=== PATIENT | female | born 1945 | race Caucasian/White ===

== ENCOUNTER 2016-06-02 05:54 | Inpatient (IN) | payer MEDICARE, BC ==
[2016-06-02] MEDS ORDERED: TRANEXAMIC ACID 1,000 MG in NORMAL SALINE 100 ML IV PRN (06:00)
[2016-06-02] MEDS ORDERED: ROPIVACAINE HCL/PF 100 MG, KETOROLAC TROMETHAMINE 30 MG, EPINEPHrine 0.2 MG in NORMAL S... IJ PRN (06:00)
[2016-06-02] MEDS ORDERED: MORPHINE SULFATE 15 MG TABLET.SA PO PRN (06:00)
[2016-06-02] MEDS ORDERED: ceFAZolin SODIUM 1 GM VIAL IV PRN (06:00)
[2016-06-02] MEDS: RINGERS SOLUTION,LACTATED 1,000 ML IV PRN ×2 (06:46→10:49)
[2016-06-02] MEDS ORDERED: PROMETHAZINE HCL 5 MG in DEXTROSE 5 % IN WATER 50 ML IV PRN ×2 (10:05)
[2016-06-02] MEDS ORDERED: ZOLPIDEM TARTRATE 5 MG TABLET PO PRN (10:05)
[2016-06-02] MEDS ORDERED: ONDANSETRON HCL/PF 2 MG/ML VIAL IV PRN (10:05)
[2016-06-02] MEDS ORDERED: MAGNESIUM HYDROXIDE 30 ML UDC PO PRN (10:05)
[2016-06-02] MEDS ORDERED: oxyCODONE HCL/ACETAMINOPHEN 1 TAB TABLET PO PRN (10:05)
[2016-06-02] MEDS ORDERED: MAG HYDROX/ALUMINUM HYD/SIMETH 30 ML UDC PO PRN (10:05)
[2016-06-02] MEDS ORDERED: ACETAMINOPHEN 500 MG TABLET PO PRN (10:05)
[2016-06-02] MEDS ORDERED: diphenhydrAMINE HCL 50 MG/ML VIAL IV PRN (10:05)
[2016-06-02] MEDS ORDERED: HYDROmorphone HCL 1 MG/ML DISP.SYRIN IV PRN (10:05)
[2016-06-02] MEDS ORDERED: ALPRAZolam 0.5 MG TABLET PO PRN (10:07)
--- NOTE | 2016-06-02 10:11 | OR ---
Operative Report - Dictated Report Narrative: Date: 06/02/2016 Preoperative diagnosis: Left Knee degenerative joint disease. Postoperative diagnosis: Left Knee degenerative joint disease. Procedure: Left Total knee arthroplasty. Surgeon: Eduardo Griffin M.D. Toggle Press Folder And Feeder: Pawan Durham PA-C Anesthesia: General with regional block and local periarticular joint injection. Complications: None Specimens: Bone for disposal. Estimated blood loss: Minimal. Tourniquet time: 96 Minutes at 350 millimeters of mercury. Retained implants: Depuy Attune size 5 narrow left lugged cemented posterior stabilized femoral component. Size 4 fixed-bearing cemented tibial platform. 5 by 7 millimeter posterior stabilized cross-linked tibial insert. 35 millimeter medialized patella button. Indications: Mrs. Osorio is a 71-year-old female who has had long-standing bilateral knee pain. She wished to proceed with a left total knee arthroplasty. This patient was followed in my clinic for period of time with significant complaints of left knee pain consistent with arthritic changes. They had failed conservative measures including, but not limited to, activity modification, passage of time, medications, and other conservative measures. Patient wished to proceed with surgical treatment. The risks, benefits, and alternatives were discussed in clinic. The risks of , blood clots, bleeding, infection, nerve/tendon blood vessel/ injury, malposition of components, intraoperative fracture, postoperative limited range of motion, persistent pain, failure of components, and need for additional procedures. Patient wished to proceed consent was obtained after answering all questions. Procedure: After marking the correct extremity on the floor, the patient was taken to the operating room. A timeout was performed. IV antibiotics consisting of Ancef were administered prior to the procedure. A regional followed by general anesthetic was induced by anesthesia on the operative table with all bony prominences well-padded. Rajput catheter was placed, and a bump was placed under the operative side buttock. SCDs and HUNTER hose were utilized on the nonoperative leg. A well-padded tourniquet was applied to the operative thigh. The operative leg was then pre-scrubbed with alcoho,l prepped , and draped in a standard sterile fashion. After exsanguinating the extremity with an Esmarch bandage, the tourniquet was inflated. After marking out the anterior knee for standard incision centered over the patella, the skin was incised and dissected down to the joint retinaculum. The joint retinaculum was marked out as well as the horizontal axis of the patella, and a standard medial parapatellar arthrotomy was then made. The most proximal aspect of the quadriceps tendon and the patella tendon insertion were protected from release. A partial synovectomy was performed as well as a resection of the infrapatellar fat pad. The distal femoral fat pad proximal to the trochlea was also resected using cautery. The soft tissues were elevated off the medial aspect of the proximal tibia using a Carreon elevator ensuring that we did not transect the medial collateral ligament. Upon initial evaluation range of motion was approximately 0 degrees to 100 degrees of flexion. There were signs of advanced arthrosis in the medial, lateral, and patellofemoral joint spaces. She had notable medial subluxation of the femur on the tibia however she had intact collateral ligaments. There were large marginal osteophytes which were removed with a rongeur. The knee was hyperflexed and the patella was tucked laterally. Protecting the surrounding soft tissues with Homans, an entry drill was placed down the femoral canal using Whitesides line for guidance into the entry point. The intramedullary femoral alignment eduardo was utilized in order to cut the distal femur in 5 degrees of valgus resecting 10 millimeters of bone. Next the distal femur was sized to a size 5. A posterior referencing guide was utilized to place the distal femoral cutting block in 3 degrees of external rotation. This was pinned into place. The rotation was confirmed both visually and based on anatomic landmarks. The 4 in 1 cutting jig of the appropriate size was utilized in order to make all bony cuts. The angle wing was used to ensure no notching. Retractors were utilized in order to protect surrounding soft tissues. This cut did not result in any excessive notching. We then cut the box centered over the distal femur. This allowed for resection of the anterior and posterior cruciate ligaments. I then turned my attention to the preparation of the tibia. Using an extra medullary tibial alignment eduardo, 1 millimeters of bone was resected off the medial articular surface. This was made perpendicular to the mechanical axis of the joint with the alignment eduardo centered over the ankle mortise. The alignment eduardo was checked and was noted to be parallel to the mechanical axis, centered over the medial one third of the tibial tubercle, paralleling the anterior surface of the tibia. We then turned our attention to the remaining meniscus and soft tissues. These were removed while protecting the surrounding ligaments and soft tissues. The marginal osteophytes off the anterior, posterior, medial, lateral aspects of the femur and tibia were removed. The tibia was sized out to a size 4. Next the tibia was drilled and punched in an externally rotated position. Next the trial femur and a series of tibial inserts were utilized in order to allow for full extension and maximal flexion. It was found that a 7 millimeter insert gave the best range of motion and stability at multiple flexion points as well as at full extension there was less than 2 mm of gapping both medially and laterally. There is minimal anterior translation with the knee at 90 degrees of flexion and no signs of being able to dislocate the knee. The patella was then prepared. The initial thickness was 23 millimeters. This was reamed down to 14 millimeters parallel to the anterior surface of the patella. It was sized out to a size 35 medialized patella button. This was then drilled and trialed. Without any medial restraint the patella tracked appropriately and did not sublux or dislocate. At this point, it was felt these were the appropriate sized implants, and all trials were removed. The standard periarticular joint injection consisting of ropivacaine, Toradol, and epinephrine were injected into the periarticular joint tissues. The bony surfaces were thoroughly irrigated with a pulsatile- suction saline irrigation device. A bone plug from the prior resected anterior chamfer cut was placed into the drill hole at the distal femur. The bony surfaces were then dried in preparation for placement of the implants. The cement was vacuum mixed per the joint creaser's instructions. The cement was placed on the dry bony surfaces and posterior aspect of the implants. The implants were impacted into place, removing all extruded cement. At this point anesthesia administered tranexamic acid per protocol intravenously. The knee was placed in extension with axial loading with the trial insert while the cement cured. Once the cement cured, all remaining extruded cement was removed. The knee was placed through a range of motion with the trial insert to ensure appropriate range of motion and stability. Final range of motion was approximately 0 to 120 degrees. The knee was again thoroughly irrigated with pulsatile saline lavage. The final polyethylene insert was then impacted into place ensuring no retained soft tissues. The remaining periarticular joint injection was injected. A medium Hemovac drain was placed exiting superior laterally. The knee was then placed over a triangle and the arthrotomy was closed with interrupted #1 Vicryl after thoroughly irrigating the joint. The deep and subcutaneous tissues were closed with interrupted oh and 3-0 Vicryl respectively. Skin was closed with a running subcutaneous 3-0 Monocryl and prineo Dermabond dressing. 4 x 4's, ABD, Sof-Rol, and a full leg Roderick wrap were applied. All sponge, needle, blade, and instrument counts were correct prior to closing the wounds. Postoperative condition: The patient was awoken and transferred to the postanesthesia care unit in stable condition. Plan is to be admitted to the inpatient medical/surgical floor postoperatively for 24 hours of IV antibiotics , physical therapy, occupational therapy, and medical comanagement. Patient will be weightbearing as tolerated with range of motion as tolerated. DVT prophylaxis will be with SCDs, HUNTER hose, and pharmacological anticoagulation. Anticipated hospital stay is approximately 2-4 days.
[2016-06-02] MEDS: DEXTROSE 5%-LACTATED RINGERS 1,000 ML IV PRN ×2 (11:01→20:40)
[2016-06-02] MEDS: ceFAZolin SODIUM 1 GM in DEXTROSE 5 % IN WATER 100 ML IV SCH ×6 (11:08→23:07)
[2016-06-02] MEDS: KETOROLAC TROMETHAMINE 15 MG/ML VIAL IV SCH ×3 (11:08→23:06)
[2016-06-02] MEDS ORDERED: RINGERS SOLUTION,LACTATED 500 ML IV ONE (16:21)
[2016-06-02] MEDS: FLUTICASONE PROPIONATE 120 SPRAY INHALER NS SCH (20:35)
[2016-06-02] MEDS: PROPRANOLOL HCL 80 MG TABLET PO SCH (20:36)
[2016-06-02] MEDS: HYDROCHLOROTHIAZIDE 25 MG TABLET PO SCH (20:36)
[2016-06-02] MEDS: MORPHINE SULFATE 15 MG TABLET.SA PO SCH (20:37)
[2016-06-02] MEDS: FAMOTIDINE 20 MG TABLET PO SCH (20:37)
[2016-06-02] MEDS: SENNOSIDES/DOCUSATE SODIUM 1 TAB TABLET PO SCH (20:37)
[2016-06-03] MEDS: KETOROLAC TROMETHAMINE 15 MG/ML VIAL IV SCH ×4 (05:05→23:28)
[2016-06-03 06:29] LABS: Hematocrit 38.1 % (37.0-47.0); Hemoglobin 12.6 gm/dL (12.5-16.0); Mean Cell Volume 100.8 fl (78-100); Mean Corpuscular Hemoglobin 33.3 pg (27-31); Mean Corpuscular Hgb Conc 33.1 g/dl (32-36); Mean Platelet Volume 9.3 fl (6.0-9.5); Platelet Count 173 K/mm3 (150-450); Red Blood Count 3.78 M/mm3 (4.2-5.4); Red Cell Distribution Width 12.8 % (11.5-14.0); White Blood Count 6.8 K/mm3 (4.0-10.5)
[2016-06-03 06:38] LABS: Anion Gap 9.6 mmol/L (6.8-13.8); BUN/Creatinine Ratio 15.4 (9.0-21.6); Calcium * 8.6 mg/dL (7.9-10.9); Carbon Dioxide 33.9 mmol/L (24-32.6); Estimated Creat Clear 76.1; Potassium 3.5 mmol/L (3.4-4.6)
--- NOTE | 2016-06-03 08:11 | PN ---
Subjective - Date and Time Seen Date: 06/03/16 Time: 08:08 Subjective Narrative: Patient reports pain has been controlled. No nausea or vomiting. No chest pain or SOB. Reports slept well. No complaints. Objective Objective Narrative: Bandages C/D/I. N/V intact PF/DF ankle. 2+ dorsalis pedis. Calves supple. - Vitals Vitals: Last Vital Signs Temp 36.6 C 06/03/16 05:09 Pulse 58 L 06/03/16 05:09 Resp 16 06/03/16 05:09 BP 112/49 06/03/16 05:09 Pulse Ox 97 06/03/16 05:09 - Abnormal Lab Findings Abnormal Lab Findings: Abnormal Lab Results 06/03/16 06/03/16 Range/Units 06:24 06:24 RBC 3.78 L (4.2-5.4) M/mm3 MCV 100.8 H (78-100) fl MCH 33.3 H (27-31) pg Carbon Dioxide 33.9 H (24-32.6) mmol/L - Exam Constitutional: Present: Alert, Oriented x3, Cooperative, No distress Cauti Physician Documentation - Urinary Catheter Management Urethral (Rajput) Date of Insertion: 06/02/16 Time of Insertion: 08:05 Assessment/Plan - Problems/Diagnosis (1) Status post total left knee replacement Problem: Acute Narrative: PT, anticoagulation, pain control, patient will need wheeled walker for 6-8 weeks post op (2) Acute blood loss anemia Problem: Acute Narrative: asymptomatic, recheck labs tomorrow am (3) Hypertension Problem: Chronic
[2016-06-03] MEDS: PROPRANOLOL HCL 80 MG TABLET PO SCH ×2 (10:07→20:21)
[2016-06-03] MEDS: CALCIUM CARBONATE 500 MG TAB.CHEW PO SCH (10:08)
[2016-06-03] MEDS: FERROUS SULFATE 325 MG TABLET PO SCH (10:09)
[2016-06-03] MEDS: HYDROCHLOROTHIAZIDE 25 MG TABLET PO SCH ×2 (10:09→20:21)
[2016-06-03] MEDS: FLUTICASONE PROPIONATE 120 SPRAY INHALER NS SCH ×2 (10:09→20:19)
[2016-06-03] MEDS: CHOLECALCIFEROL 1,000 UNIT CAPSULE PO SCH (10:15)
[2016-06-03] MEDS: ENOXAPARIN SODIUM 40 MG/0.4 ML SYRG SC SCH ×2 (10:24→10:28)
[2016-06-03] MEDS: MORPHINE SULFATE 15 MG TABLET.SA PO SCH ×2 (10:24→20:31)
[2016-06-03] MEDS: FAMOTIDINE 20 MG TABLET PO SCH (20:26)
[2016-06-03] MEDS: SENNOSIDES/DOCUSATE SODIUM 1 TAB TABLET PO SCH (20:27)
[2016-06-04] MEDS: KETOROLAC TROMETHAMINE 15 MG/ML VIAL IV SCH (04:53)
[2016-06-04 06:17] LABS: Hematocrit 34.9 % (37.0-47.0); Hemoglobin 11.5 gm/dL (12.5-16.0); Mean Cell Volume 102.9 fl (78-100); Mean Corpuscular Hemoglobin 33.9 pg (27-31); Mean Platelet Volume 9.5 fl (6.0-9.5); Platelet Count 166 K/mm3 (150-450); Red Blood Count 3.39 M/mm3 (4.2-5.4); Red Cell Distribution Width 12.9 % (11.5-14.0); White Blood Count 7.9 K/mm3 (4.0-10.5)
[2016-06-04 06:35] LABS: Anion Gap 8.4 mmol/L (6.8-13.8); BUN/Creatinine Ratio 29.7 (9.0-21.6); Calcium * 8.6 mg/dL (7.9-10.9); Estimated Creat Clear 66.8; Potassium 3.4 mmol/L (3.4-4.6)
[2016-06-04 07:08] VITALS: BP 126/57
[2016-06-04] MEDS: FLUTICASONE PROPIONATE 120 SPRAY INHALER NS SCH (08:35)
[2016-06-04] MEDS: CHOLECALCIFEROL 1,000 UNIT CAPSULE PO SCH (08:36)
[2016-06-04] MEDS: CALCIUM CARBONATE 500 MG TAB.CHEW PO SCH (08:36)
[2016-06-04] MEDS: HYDROCHLOROTHIAZIDE 25 MG TABLET PO SCH (08:36)
[2016-06-04] MEDS: MORPHINE SULFATE 15 MG TABLET.SA PO SCH (08:36)
[2016-06-04] MEDS: PROPRANOLOL HCL 80 MG TABLET PO SCH (08:36)
[2016-06-04] MEDS: FERROUS SULFATE 325 MG TABLET PO SCH (08:37)
[2016-06-04] MEDS: ENOXAPARIN SODIUM 40 MG/0.4 ML SYRG SC SCH (08:37)
--- NOTE | 2016-06-04 10:06 | DS ---
(1) Anxiety Problem: Chronic (2) Dysphasia Problem: Chronic (3) Vitamin B 12 deficiency Problem: Chronic (4) Acute blood loss anemia Problem: Acute (5) Status post total left knee replacement Problem: Acute (6) Hypertension Problem: Chronic Description of Stay: Mrs. Osorio was admitted to the floor after undergoing left total knee arthroplasty. Tolerated this well. Was admitted to the floor postoperatively for 24 hours of IV antibiotics, pain control, medical comanagement, and occupational and physical therapy. OT and PT were consulted to assist with activities of daily living and ambulation. Was made weightbearing as tolerated with range of motion as tolerated. Pain was initially controlled with IV regimen. This was transitioned to oral once tolerating a by mouth intake. Was resumed on home diet and medications. Had a Rajput catheter inserted and the operating room which was discontinued on postoperative day 1. A drain was placed intraoperatively into the knee which was discontinued on postoperative day 1. Lovenox SCD and HUNTER hose were utilized for DVT prophylaxis. Vital signs remained stable to the hospital course. Serial labs were obtained which showed a final hemoglobin of 11.5 grams. BMP was reviewed and was stable. Physical examination throughout the hospital course showed an extremity that had sensation that was intact to light touch, palpable pulses, a benign wound, motor intact to the toes, ankle, and knee. Knee range of motion was approximately 0 degrees to 70 degrees. Once an oral pain regimen was tolerated and physical therapy goals were met, it was felt that they were stable for discharge to home. Instructions: Continue with weightbearing as tolerated and range of motion as tolerated. She is okay to shower as long as there is no drainage from the wound. If she notes any drainage she can cover with dry gauze and tape. Change every 2-3 days as needed. Continue with physical therapy. Resume home diet. Report any fever over 101.5 Fahrenheit, uncontrolled pain, increased drainage, foul odor of drainage, new or increased calf pain or shortness of breath, or any other significant complaints. A 325mg dialy aspirin will be started after finishing anticoagulation if not allergic. Continue with HUNTER hose on the operative extremity until instructed otherwise. No driving until instructed otherwise. Follow up in approximately 10-14 days. Procedures Performed: see notes below List Procedures: Left total knee arthroplasty Discharge Disposition: Home self care Disposition: Home self-care Condition: Good Discharge Activity: Activity as tolerated, Weight bearing Discharge Diet: General/regular food Group Home Therapy: Physicial Therapy Referrals: Bridget Chambers MD [Primary Care Provider] - Additional Patient Instructions (free text): Follow up with Dr. Griffin 06/17 at 10:45. Prescriptions (Any new or edited meds): Enoxaparin Sodium [Lovenox] 40 mg SC Q24H #7 disp.syrin Morphine Sulfate [Ms Contin] 15 mg PO Q12H #30 tablet.sa Sennosides/Docusate Sodium [Senokot-S] 2 tab PO HS #30 tablet oxyCODONE HCL/ACETAMINOPHEN [Percocet 5 MG/325 MG] 2 tab PO Q4H PRN #90 tablet PRN Reason: Moderate Pain Complete Home Medications List: Complete Home Medication List: ALPRAZolam [Xanax] 0.5 - 1 mg PO Q6H PRN 05/23/16 Calcium Carbonate [Wyoq-Fps-829] 500 mg PO DAILY 05/23/16 Cholecalciferol (Vitamin D3) [Vitamin D3] 2,000 unit PO DAILY 05/23/16 Ferrous Sulfate [Iron] 325 mg PO DAILY 05/23/16 Fluticasone Propionate [Flonase] 1 spray NS BID 05/23/16 Propranolol/Hydrochlorothiazid [Propranolol-Hctz 80-25 mg Tab] 1 each PO BID 12/30 Ranitidine HCl [Zantac] 300 mg PO HS 05/23/16 Enoxaparin Sodium [Lovenox] 40 mg SC Q24H #7 disp.syrin 06/04/16 Morphine Sulfate [Ms Contin] 15 mg PO Q12H #30 tablet.sa 06/04/16 Sennosides/Docusate Sodium [Senokot-S] 2 tab PO HS #30 tablet 06/04/16 oxyCODONE HCL/ACETAMINOPHEN [Percocet 5 MG/325 MG] 2 tab PO Q4H PRN #90 tablet 06/04/16
== END 2016-06-04 15:18 | disposition home or self-care (01) | DRG 470 ==
LOC: MS 05:54
PROVIDERS: ADMIT Orthopaedic Surgery; ATTEND Orthopaedic Surgery
PROC: 0SRD0J9 Replacement of Left Knee Joint with Synthetic Substitute, Cemented, Open Approach (ICD-10-PCS; principal; 2016-06-02 08:00)
DX: M17.12 Unilateral primary osteoarthritis, left knee (principal); D62 Acute posthemorrhagic anemia; I10 Essential (primary) hypertension; R13.10 Dysphagia, unspecified; F41.9 Anxiety disorder, unspecified

== ENCOUNTER 2016-08-04 05:53 | Inpatient (IN) | payer MEDICARE, BC ==
[2016-08-04] MEDS ORDERED: ROPIVACAINE HCL/PF 100 MG, KETOROLAC TROMETHAMINE 30 MG, EPINEPHrine 0.2 MG in NORMAL S... IJ PRN (06:00)
[2016-08-04] MEDS ORDERED: MORPHINE SULFATE 15 MG TABLET.SA PO PRN (06:00)
[2016-08-04] MEDS ORDERED: RINGERS SOLUTION,LACTATED 1,000 ML IV PRN (06:00)
[2016-08-04] MEDS ORDERED: ceFAZolin SODIUM 1 GM VIAL IV PRN (06:00)
[2016-08-04] MEDS ORDERED: TRANEXAMIC ACID 1,000 MG in NORMAL SALINE 100 ML IV PRN (06:00)
[2016-08-04] MEDS ORDERED: RINGERS SOLUTION,LACTATED 800 ML IV ONE (07:40)
[2016-08-04] MEDS ORDERED: NALOXONE HCL 0.4 MG/ML VIAL IV PRN (08:58)
[2016-08-04] MEDS ORDERED: PROMETHAZINE HCL 12.5 MG in DEXTROSE 5 % IN WATER 50 ML IV PRN ×2 (08:58)
[2016-08-04] MEDS ORDERED: diphenhydrAMINE HCL 50 MG/ML VIAL IV PRN ×2 (08:58→09:48)
[2016-08-04] MEDS ORDERED: ONDANSETRON HCL/PF 2 MG/ML VIAL IV PRN ×2 (08:58→09:48)
[2016-08-04] MEDS ORDERED: HYDROmorphone HCL 2 MG/ML VIAL IV PRN (08:58)
[2016-08-04] MEDS ORDERED: RINGERS SOLUTION,LACTATED 1,000 ML IV ONE ×3 (09:00)
[2016-08-04] MEDS ORDERED: MAGNESIUM HYDROXIDE 30 ML UDC PO PRN (09:48)
[2016-08-04] MEDS ORDERED: ACETAMINOPHEN 500 MG TABLET PO PRN (09:48)
[2016-08-04] MEDS ORDERED: HYDROmorphone HCL 1 MG/ML DISP.SYRIN IV PRN (09:48)
[2016-08-04] MEDS ORDERED: ZOLPIDEM TARTRATE 5 MG TABLET PO PRN (09:48)
[2016-08-04] MEDS ORDERED: PROMETHAZINE HCL 5 MG in DEXTROSE 5 % IN WATER 50 ML IV PRN ×2 (09:48)
[2016-08-04] MEDS ORDERED: MAG HYDROX/ALUMINUM HYD/SIMETH 30 ML UDC PO PRN (09:48)
[2016-08-04] MEDS ORDERED: oxyCODONE HCL/ACETAMINOPHEN 1 TAB TABLET PO PRN (09:48)
[2016-08-04] MEDS: DEXTROSE 5%-LACTATED RINGERS 1,000 ML IV PRN ×2 (11:04→17:28)
[2016-08-04] MEDS: KETOROLAC TROMETHAMINE 15 MG/ML VIAL IV SCH ×3 (11:06→23:26)
[2016-08-04] MEDS: ceFAZolin SODIUM 1 GM in DEXTROSE 5 % IN WATER 100 ML IV SCH ×6 (11:06→23:26)
[2016-08-04] MEDS ORDERED: ALPRAZolam 0.5 MG TABLET PO PRN (11:35)
--- NOTE | 2016-08-04 11:37 | OR ---
Operative Report - Dictated Report Narrative: Date: 08/04/2016 Preoperative diagnosis: Right Knee degenerative joint disease. Postoperative diagnosis: Right Knee degenerative joint disease. Procedure: Right Total knee arthroplasty. Surgeon: Eduardo Griffin M.D. Mortgage Loan Interviewer: Pawan Durham PA-C Anesthesia: Spinal with regional block and local periarticular joint injection. Complications: None Specimens: Bone for disposal. Estimated blood loss: Minimal. Tourniquet time: 90 Minutes at 350 millimeters of mercury. Retained implants: Depuy Attune size 5 narrow right lugged cemented posterior stabilized femoral component. Size 4 fixed-bearing cemented tibial platform. 5 by 8 millimeter posterior stabilized cross-linked tibial insert. 35 millimeter medialized patella button. Indications: Mrs. Osorio is a 71-year-old female who previously underwent left total knee arthroplasty for bilateral knee arthrosis in the subsequent having her right knee done. This patient was followed in my clinic for period of time with significant complaints of right knee pain consistent with arthritic changes. They had failed conservative measures including, but not limited to, activity modification, passage of time, medications, and other conservative measures. Patient wished to proceed with surgical treatment. The risks, benefits, and alternatives were discussed in clinic. The risks of , blood clots, bleeding, infection, nerve/tendon blood vessel/ injury, malposition of components, intraoperative fracture, postoperative limited range of motion, persistent pain, failure of components, and need for additional procedures. Patient wished to proceed consent was obtained after answering all questions. Procedure: After marking the correct extremity on the floor, the patient was taken to the operating room. A timeout was performed. IV antibiotics consisting of Ancef were administered prior to the procedure. A regional followed by spinal anesthetic was induced by anesthesia on the operative table with all bony prominences well-padded. Rajput catheter was placed, and a bump was placed under the operative side buttock. SCDs and HUNTER hose were utilized on the nonoperative leg. A well-padded tourniquet was applied to the operative thigh. The operative leg was then pre-scrubbed with alcoho,l prepped, and draped in a standard sterile fashion. After exsanguinating the extremity with an Esmarch bandage, the tourniquet was inflated. After marking out the anterior knee for standard incision centered over the patella, the skin was incised and dissected down to the joint retinaculum. The joint retinaculum was marked out as well as the horizontal axis of the patella, and a standard medial parapatellar arthrotomy was then made. The most proximal aspect of the quadriceps tendon and the patella tendon insertion were protected from release. A partial synovectomy was performed as well as a resection of the infrapatellar fat pad. The distal femoral fat pad proximal to the trochlea was also resected using cautery. The soft tissues were elevated off the medial aspect of the proximal tibia using a Carreon elevator ensuring that we did not transect the medial collateral ligament. Upon initial evaluation range of motion was approximately 0 degrees to 110 degrees of flexion. There were signs of advanced arthrosis in the medial, lateral, and patellofemoral joint spaces. There were large marginal osteophytes which were removed with a rongeur. The knee was hyperflexed and the patella was tucked laterally. Protecting the surrounding soft tissues with Homans, an entry drill was placed down the femoral canal using Whitesides line for guidance into the entry point. The intramedullary femoral alignment eduardo was utilized in order to cut the distal femur in 5 degrees of valgus resecting 10 millimeters of bone. Next the distal femur was sized to a size 5. A posterior referencing guide was utilized to place the distal femoral cutting block in 3 degrees of external rotation. This was pinned into place. The rotation was confirmed both visually and based on anatomic landmarks. The 4 in 1 cutting jig of the appropriate size was utilized in order to make all bony cuts. The angle wing was used to ensure no notching. Retractors were utilized in order to protect surrounding soft tissues. This cut did not result in any excessive notching. We then cut the box centered over the distal femur. This allowed for resection of the anterior and posterior cruciate ligaments. I then turned my attention to the preparation of the tibia. Using an extra medullary tibial alignment eduardo, 1 millimeter of bone was resected off the medial articular surface. This was made perpendicular to the mechanical axis of the joint with the alignment eduardo centered over the ankle mortise. The alignment eduardo was checked and was noted to be parallel to the mechanical axis, centered over the medial one third of the tibial tubercle, paralleling the anterior surface of the tibia. We then turned our attention to the remaining meniscus and soft tissues. These were removed while protecting the surrounding ligaments and soft tissues. The marginal osteophytes off the anterior, posterior, medial, lateral aspects of the femur and tibia were removed. The tibia was sized out to a size 4. Next the tibia was drilled and punched in an externally rotated position. Next the trial femur and a series of tibial inserts were utilized in order to allow for full extension and maximal flexion. It was found that a 8 millimeter insert gave the best range of motion and stability at multiple flexion points as well as at full extension there was less than 2 mm of gapping both medially and laterally. There is minimal anterior translation with the knee at 90 degrees of flexion and no signs of being able to dislocate the knee. The patella was then prepared. The initial thickness was 23 millimeters. This was reamed down to 13 millimeters parallel to the anterior surface of the patella. It was sized out to a size 35 medialized patella button. This was then drilled and trialed. Without any medial restraint the patella tracked appropriately and did not sublux or dislocate. At this point, it was felt these were the appropriate sized implants, and all trials were removed. The standard periarticular joint injection consisting of ropivacaine, Toradol, and epinephrine were injected into the periarticular joint tissues. The bony surfaces were thoroughly irrigated with a pulsatile- suction saline irrigation device. A bone plug from the prior resected anterior chamfer cut was placed into the drill hole at the distal femur. The bony surfaces were then dried in preparation for placement of the implants. The cement was vacuum mixed per the grain i farmworker's instructions. The cement was placed on the dry bony surfaces and posterior aspect of the implants. The implants were impacted into place, removing all extruded cement. At this point anesthesia administered tranexamic acid per protocol intravenously. The knee was placed in extension with axial loading with the trial insert while the cement cured. Once the cement cured, all remaining extruded cement was removed. The knee was placed through a range of motion with the trial insert to ensure appropriate range of motion and stability. Final range of motion was approximately 0 to 120 degrees. The knee was again thoroughly irrigated with pulsatile saline lavage. The final polyethylene insert was then impacted into place ensuring no retained soft tissues. The remaining periarticular joint injection was injected. A medium Hemovac drain was placed exiting superior laterally. The knee was then placed over a triangle and the arthrotomy was closed with interrupted #1 Vicryl after thoroughly irrigating the joint. The deep and subcutaneous tissues were closed with interrupted oh and 3-0 Vicryl respectively. Skin was closed with a running subcutaneous 3-0 Monocryl and Prineo Dermabond dressing. 4 x 4's, ABD, Sof-Rol, and a full leg Roderick wrap were applied. All sponge, needle, blade, and instrument counts were correct prior to closing the wounds. Postoperative condition: The patient was awoken and transferred to the postanesthesia care unit in stable condition. Plan is to be admitted to the inpatient medical/surgical floor postoperatively for 24 hours of IV antibiotics , physical therapy, occupational therapy, and medical comanagement. Patient will be weightbearing as tolerated with range of motion as tolerated. DVT prophylaxis will be with SCDs, HUNTER hose, and pharmacological anticoagulation. Anticipated hospital stay is approximately 2-4 days.
[2016-08-04] MEDS: HYDROCHLOROTHIAZIDE 25 MG TABLET PO SCH (20:29)
[2016-08-04] MEDS: SENNOSIDES/DOCUSATE SODIUM 1 TAB TABLET PO SCH (20:29)
[2016-08-04] MEDS: FAMOTIDINE 20 MG TABLET PO SCH (20:29)
[2016-08-04] MEDS: FLUTICASONE PROPIONATE 120 SPRAY INHALER NS SCH (20:29)
[2016-08-04] MEDS: MORPHINE SULFATE 15 MG TABLET.SA PO SCH (20:29)
[2016-08-04] MEDS: ATENOLOL 50 MG TABLET PO SCH (20:30)
[2016-08-05] MEDS: DEXTROSE 5%-LACTATED RINGERS 1,000 ML IV PRN (02:35)
[2016-08-05] MEDS: KETOROLAC TROMETHAMINE 15 MG/ML VIAL IV SCH ×4 (04:51→22:19)
[2016-08-05 06:15] LABS: Anion Gap 6.5 mmol/L (6.8-13.8); BUN/Creatinine Ratio 13.5 (9.0-21.6); Calcium * 8.4 mg/dL (7.9-10.9); Carbon Dioxide 33.8 mmol/L (24-32.6); Estimated Creat Clear 69.3; Hematocrit 32.7 % (37.0-47.0); Mean Cell Volume 99.7 fl (78-100); Mean Corpuscular Hemoglobin 30.5 pg (27-31); Mean Corpuscular Hgb Conc 30.6 g/dl (32-36); Platelet Count 202 K/mm3 (150-450); Potassium 3.3 mmol/L (3.4-4.6); Red Blood Count 3.28 M/mm3 (4.2-5.4); Red Cell Distribution Width 13.2 % (11.5-14.0); White Blood Count 6.4 K/mm3 (4.0-10.5)
--- NOTE | 2016-08-05 08:12 | PN ---
Subjective - Date and Time Seen Date: 08/05/16 Time: 08:07 Subjective Narrative: Subjective: Reports mild pain last night. He has not been out of bed yet with therapy. Pain is well-controlled. Voiding without any complications. Tolerating by mouth intake. Denies any nausea or vomiting. Denies calf pain. Slept well. Physical exam: Alert and oriented to person, place and time Right lower Extremity: Palpable dorsalis pedis pulse. Sensation grossly intact to light touch. Dressings clean and dry. Able to flex and extend ankle and toes. No excessive drainage. Calf and thigh are soft and nontender. Assessment: Postop day 1 status post right total knee arthroplasty. Plan: Continue with physical and occupational therapy weightbearing as tolerated. Continue with anticoagulation. 24 hours postoperative prophylactic antibiotics. Pain control with goal to rely on oral medications. Continue bowel regimen. Will need 6 weeks with walker or assitive device to protect joint while ambulating during the recovery process. Discharge planning. Discontinue drain and Rajput catheter. Repeat labs in a.m. Objective - Vitals Vitals: Last Vital Signs Temp 36.7 C 08/05/16 06:40 Pulse 54 L 08/05/16 06:40 Resp 18 08/05/16 06:40 BP 122/57 08/05/16 06:40 Pulse Ox 96 08/05/16 06:40 - Abnormal Lab Findings Abnormal Lab Findings: Abnormal Lab Results 08/05/16 08/05/16 Range/Units 04:55 04:55 RBC 3.28 L (4.2-5.4) M/mm3 Hgb 10.0 L (12.5-16.0) gm/dL Hct 32.7 L (37.0-47.0) % MCHC 30.6 L (32-36) g/dl Potassium 3.3 L (3.4-4.6) mmol/L Carbon Dioxide 33.8 H (24-32.6) mmol/L Anion Gap 6.5 L (6.8-13.8) mmol/L [facility]i Physician Documentation - Urinary Catheter Management 2-way Urethral Date of Insertion: 08/04/16 Time of Insertion: 08:00 Date of Removal: 08/05/16 Time of Removal: 06:59 Assessment/Plan - Problems/Diagnosis (1) Status post total right knee replacement Problem: Acute (2) Acute blood loss anemia Problem: Acute (3) Anxiety Problem: Chronic (4) Dysphasia Problem: Chronic (5) Hypertension Problem: Chronic (6) Hypokalemia Problem: Acute
[2016-08-05] MEDS: FERROUS SULFATE 325 MG TABLET PO SCH (08:56)
[2016-08-05] MEDS: FLUTICASONE PROPIONATE 120 SPRAY INHALER NS SCH ×2 (08:56→20:34)
[2016-08-05] MEDS: HYDROCHLOROTHIAZIDE 25 MG TABLET PO SCH ×2 (08:56→20:34)
[2016-08-05] MEDS: ATENOLOL 50 MG TABLET PO SCH ×2 (08:56→20:35)
[2016-08-05] MEDS: ENOXAPARIN SODIUM 40 MG/0.4 ML SYRG SC SCH (08:56)
[2016-08-05] MEDS: CHOLECALCIFEROL 1,000 UNIT CAPSULE PO SCH (08:57)
[2016-08-05] MEDS: CALCIUM CARBONATE 500 MG TAB.CHEW PO SCH (08:57)
[2016-08-05] MEDS: MORPHINE SULFATE 15 MG TABLET.SA PO SCH ×2 (09:05→20:34)
[2016-08-05] MEDS: SENNOSIDES/DOCUSATE SODIUM 1 TAB TABLET PO SCH (20:34)
[2016-08-05] MEDS: FAMOTIDINE 20 MG TABLET PO SCH (20:34)
[2016-08-06] MEDS: KETOROLAC TROMETHAMINE 15 MG/ML VIAL IV SCH (04:48)
[2016-08-06 05:24] LABS: Hematocrit 33.8 % (37.0-47.0); Hemoglobin 10.3 gm/dL (12.5-16.0); Mean Cell Volume 99.1 fl (78-100); Mean Corpuscular Hemoglobin 30.2 pg (27-31); Mean Corpuscular Hgb Conc 30.5 g/dl (32-36); Mean Platelet Volume 9.2 fl (6.0-9.5); Platelet Count 209 K/mm3 (150-450); Red Blood Count 3.41 M/mm3 (4.2-5.4); Red Cell Distribution Width 13.7 % (11.5-14.0); White Blood Count 7.4 K/mm3 (4.0-10.5)
[2016-08-06 05:35] LABS: Anion Gap 6.1 mmol/L (6.8-13.8); BUN/Creatinine Ratio 15.1 (9.0-21.6); Calcium * 8.7 mg/dL (7.9-10.9); Carbon Dioxide 34.7 mmol/L (24-32.6); Estimated Creat Clear 70.3; Potassium 3.8 mmol/L (3.4-4.6)
[2016-08-06] MEDS: ENOXAPARIN SODIUM 40 MG/0.4 ML SYRG SC SCH (08:28)
[2016-08-06] MEDS: MORPHINE SULFATE 15 MG TABLET.SA PO SCH (08:30)
[2016-08-06] MEDS: CHOLECALCIFEROL 1,000 UNIT CAPSULE PO SCH (08:30)
[2016-08-06] MEDS: FLUTICASONE PROPIONATE 120 SPRAY INHALER NS SCH (08:30)
[2016-08-06] MEDS: FERROUS SULFATE 325 MG TABLET PO SCH (08:31)
[2016-08-06] MEDS: ATENOLOL 50 MG TABLET PO SCH (08:31)
[2016-08-06] MEDS: CALCIUM CARBONATE 500 MG TAB.CHEW PO SCH (08:31)
[2016-08-06] MEDS: HYDROCHLOROTHIAZIDE 25 MG TABLET PO SCH (08:31)
--- NOTE | 2016-08-06 10:03 | DS ---
(1) Status post total right knee replacement Problem: Acute (2) Acute blood loss anemia Problem: Acute (3) Anxiety Problem: Chronic (4) Dysphasia Problem: Chronic (5) Hypertension Problem: Chronic (6) Hypokalemia Problem: Resolved Description of Stay: Mrs. Osorio was admitted to the floor after undergoing right total knee arthroplasty. Tolerated this well. Was admitted to the floor postoperatively for 24 hours of IV antibiotics, pain control, medical comanagement, and occupational and physical therapy. OT and PT were consulted to assist with activities of daily living and ambulation. Was made weightbearing as tolerated with range of motion as tolerated. Pain was initially controlled with IV regimen. This was transitioned to oral once tolerating a by mouth intake. Was resumed on home diet and medications. Had a Rajput catheter inserted and the operating room which was discontinued on postoperative day 1. A drain was placed intraoperatively into the knee which was discontinued on postoperative day 1. Lovenox SCD and HUNTER hose were utilized for DVT prophylaxis. Vital signs remained stable to the hospital course. Serial labs were obtained which showed a final hemoglobin of 10.0 grams. BMP was reviewed and was stable. Physical examination throughout the hospital course showed an extremity that had sensation that was intact to light touch, palpable pulses, a benign wound, motor intact to the toes, ankle, and knee. Knee range of motion was approximately 0 degrees to 60 degrees. Once an oral pain regimen was tolerated and physical therapy goals were met, it was felt that they were stable for discharge to home. Instructions: Continue with weightbearing as tolerated and range of motion as tolerated. As long as it is no drainage from the wound she is okay to shower. If there is any drainage she is instructed to keep the wound clean and dry. Cover with dry gauze and tape. Change every 2-3 days as needed. CPM is available only use. This is to be used as tolerated and at her discretion. Continue with physical therapy. Resume home diet. Report any fever over 101.5 Fahrenheit, uncontrolled pain, increased drainage, foul odor of drainage, new or increased calf pain or shortness of breath, or any other significant complaints. A 325mg dialy aspirin will be started after finishing anticoagulation if not allergic. Continue with HUNTER hose on the operative extremity until instructed otherwise. No driving until instructed otherwise. Follow up in approximately 10-14 days. Procedures Performed: see notes below List Procedures: Right total knee arthroplasty Discharge Disposition: Home self care Disposition: Home self-care Condition: Good Discharge Activity: Activity as tolerated, Weight bearing Discharge Diet: General/regular food Custodial Therapy: Physicial Therapy Referrals: Bridget Chambers MD [Primary Care Provider] - Additional Patient Instructions (free text): Outpatient Physical Therapy at [facility] on ThursdayAugust 08 at 9:45am. Follow up with Dr. Griffin on August at 9:45 Am Prescriptions (Any new or edited meds): Enoxaparin Sodium [Lovenox] 40 mg SC Q24H #7 disp.syrin Complete Home Medications List: Complete Home Medication List: ALPRAZolam [Xanax] 0.5 - 1 mg PO Q6H PRN 05/23/16 Calcium Carbonate [[id number]] 500 mg PO DAILY 05/23/16 Cholecalciferol (Vitamin D3) [Vitamin D3] 2,000 unit PO DAILY 05/23/16 Ferrous Sulfate [Iron] 325 mg PO DAILY 05/23/16 Fluticasone Propionate [Flonase] 1 spray NS BID 05/23/16 Ranitidine HCl [Zantac] 300 mg PO HS 05/23/16 Sennosides/Docusate Sodium [Senokot-S] 2 tab PO HS #30 tablet 06/04/16 Aspirin 325 mg PO DAILY 07/09/16 Atenolol [Tenormin] 50 mg PO BID 07/09/16 Hydrochlorothiazide [Hydrodiuril] 25 mg PO BID 07/09/16 oxyCODONE HCL/ACETAMINOPHEN [Percocet 5 MG/325 MG] 1 - 2 tab PO Q4H PRN Enoxaparin Sodium [Lovenox] 40 mg SC Q24H #7 disp.syrin 08/06/16 Sennosides/Docusate Sodium [Senokot-S] 2 tab PO HS tablet 08/06/16 oxyCODONE HCL/ACETAMINOPHEN [Percocet 5 MG/325 MG] 2 tab PO Q4H PRN #0 tablet
[2016-08-06 10:38] VITALS: BP 115/51
== END 2016-08-06 11:45 | disposition home or self-care (01) | DRG 470 ==
LOC: MS 05:53
PROVIDERS: ADMIT Orthopaedic Surgery; ATTEND Orthopaedic Surgery
PROC: 0SRC0J9 Replacement of Right Knee Joint with Synthetic Substitute, Cemented, Open Approach (ICD-10-PCS; principal; 2016-08-04 08:00)
DX: M17.0 Bilateral primary osteoarthritis of knee (principal); D62 Acute posthemorrhagic anemia; E87.6 Hypokalemia; I10 Essential (primary) hypertension; R13.10 Dysphagia, unspecified; Z79.82 Long term (current) use of aspirin